=== PATIENT | male | born 1970 | race American Indian/Alaskan Native ===

== ENCOUNTER 2018-03-01 16:21 | Emergency (ER) | payer MEDICARE, MEDICAID ==
[~2018-03-01] VITALS: Ht 170.2 cm; Wt 77.7 kg
[~2018-03-01 16:21] MED LIST: ACET500C50 PO; AMOX-580 PO; ATRO5DRO LEFTEYE; DEXA5DRO4 RIGHTEYE; DIAZ5TAB PO; DORZ10DR17 LEFTEYE; GENT5DRO OP; GENT5DRO4 OP; LACT1CAP26 PO; MECL-111 PO; MECL12.584 PO; NAPR-232 PO; ONDA4TAB6 PO; PRED1DRO EACHEYE
[2018-03-01] MEDS ORDERED: ciprofloxacin 0.3% 5ml ophthalmic solution RIGHTEYE ONE (17:15)
[2018-03-01 17:40] VITALS: BP 156/98
== END 2018-03-01 17:42 | disposition home or self-care (01) ==
LOC: ER 16:22
DX: H53.8 Other visual disturbances (principal); F12.10 Cannabis abuse, uncomplicated; Z56.0 Unemployment, unspecified; Z59.0 Homelessness; Z79.899 Other long term (current) drug therapy; Z60.2 Problems related to living alone
CPT/HCPCS: 99284

== ENCOUNTER 2018-05-16 16:36 | Emergency (ER) | payer MEDICARE, MEDICAID ==
[~2018-05-16] VITALS: Ht 4311.5 cm; Wt 85.9 kg
[2018-05-16] MEDS ORDERED: LORazepam 2 mg/ml vial IM ONE (16:50)
[2018-05-16] MEDS ORDERED: OFLO5DRO3 (17:27)
[2018-05-16 17:30] LABS: BASOPHILS % (AUTO) 0.4 % (0-1); EOSINOPHILS # (AUTO) 0.1 X10'3 (0-0.9); EOSINOPHILS % (AUTO) 1.6 % (0-6); HEMATOCRIT 37.8 % (42.0-52.0); HEMOGLOBIN 13.3 g/dl (14.0-17.9); LYMPHOCYTES % (AUTO) 28.1 % (21-51); MEAN CORPUSCULAR HEMOGLOBIN 31.9 PG (27.0-31.0); MEAN CORPUSCULAR HGB CONC 35.1 % (33.0-36.5); MEAN CORPUSCULAR VOLUME 90.8 FL (78-98); MEAN PLATELET VOLUME 8.1 FL (7.4-10.4); MONOCYTES # (AUTO) 0.8 X10'3 (0-0.9); MONOCYTES % (AUTO) 11.4 % (2-12); NEUTROPHILS # (AUTO) 4.3 X10'3 (1.8-7.7); NEUTROPHILS % (AUTO) 58.5 % (42-75); PLATELET COUNT 237 X10'3 (140-440); RED BLOOD COUNT 4.17 X10'6 (4.70-6.10); RED CELL DISTRIBUTION WIDTH 13.9 % (11.5-14.5); WHITE BLOOD COUNT 7.3 X10'3 (4.5-11.0)
[2018-05-16 17:50] LABS: ALANINE AMINOTRANSFERASE 22 U/L (12-78); ALBUMIN 3.4 G/DL (3.4-5.0); ALKALINE PHOSPHATASE 68 IU/L (46-116); ANION GAP 7 (8-16); ASPARTATE AMINO TRANSFERASE 25 U/L (10-37); BILIRUBIN,TOTAL 0.7 MG/DL (0.1-1.0); BLOOD UREA NITROGEN 10 MG/DL (7-18); BUN/CREATININE RATIO 12.2 (5.4-32.0); CALCIUM 8.6 MG/DL (8.5-10.1); CHLORIDE 103 MMOL/L (99-107); CREATININE 0.82 MG/DL (0.60-1.10); GLUCOSE 81 MG/DL (70-104); POTASSIUM 3.7 MMOL/L (3.5-5.1); SODIUM 136 MMOL/L (135-145); TOTAL PROTEIN 6.8 G/DL (6.4-8.2); eGFR > 90 ML/MIN
[2018-05-16 17:59] LABS: ETHANOL < 0.010 GM/DL (0.0-0.010)
[2018-05-16 19:34] LABS: CLARITY,URINE CLEAR (Clear); COLOR,URINE YELLOW (Yellow); GLUCOSE, URINE NEGATIVE (Neg); KETONES,URINE NEGATIVE (Neg); LEUKOCYTE ESTERASE ,URINE NEGATIVE (Neg); NITRITES, URINE NEGATIVE (Neg); OCCULT BLOOD,URINE NEGATIVE (Neg); PH,URINE 6.5 (4.8-8.0); PROTEIN,URINE NEGATIVE (Neg); UROBILINOGEN,URINE >=8.0 E.U/dL (0.2-1.0)
[2018-05-16 19:40] LABS: UA COLLECTION TYPE CLN CATCH MIDSTREAM
[2018-05-16 19:41] LABS: URINE AMPHETAMINE SCREEN POSITIVE (Neg); URINE BARBITUATE SCREEN NEGATIVE (Neg); URINE BENZODIAZEPINES SCREEN NEGATIVE (Neg); URINE CANNABINOID SCREEN POSITIVE (Neg); URINE COCAINE SCREEN NEGATIVE (Neg); URINE METHADONE SCREEN NEGATIVE (Neg); URINE OPIATE SCREEN NEGATIVE (Neg); URINE PHENCYCLIDINE SCREEN NEGATIVE (Neg)
[2018-05-16] MEDS: ciprofloxacin 0.3% 2.5ml ophthalmic solution EACHEYE SCH (20:28)
[2018-05-16] MEDS ORDERED: LORazepam 1 MG tablet PO ONE (21:50)
[2018-05-17] MEDS: ciprofloxacin 0.3% 2.5ml ophthalmic solution EACHEYE SCH ×6 (04:07→20:00)
[2018-05-17] MEDS ORDERED: LORazepam 1 MG tablet PO ONE (09:05)
[2018-05-17] MEDS: LORazepam 1 MG tablet PO PRN (21:10)
[2018-05-17] MEDS: acetaminophen 325mg tablet PO PRN (21:11)
[2018-05-18] MEDS: ciprofloxacin 0.3% 2.5ml ophthalmic solution EACHEYE SCH ×6 (08:00→20:00)
[2018-05-19] MEDS: ciprofloxacin 0.3% 2.5ml ophthalmic solution EACHEYE SCH ×6 (04:53→20:06)
[2018-05-19] MEDS ORDERED: LORazepam 2 mg/ml vial IV ONE (19:55)
[2018-05-19] MEDS ORDERED: levetiracetam inj 1,000 MG in normal saline 100ml IV soln 90 ML IV SCH (20:00)
[2018-05-19] MEDS ORDERED: levetiracetam inj 1,000 MG in normal saline 100ml IV soln 100 ML IV ONE (20:00)
[2018-05-20] MEDS: ciprofloxacin 0.3% 2.5ml ophthalmic solution EACHEYE SCH ×6 (04:00→19:48)
[2018-05-20] MEDS ORDERED: LORazepam 2 mg/ml vial IV ONE (13:15)
[2018-05-20] MEDS: LORazepam 1 MG tablet PO PRN (19:48)
[2018-05-21] MEDS: ciprofloxacin 0.3% 2.5ml ophthalmic solution EACHEYE SCH ×6 (04:00→19:28)
[2018-05-21] MEDS: LORazepam 1 MG tablet PO PRN ×2 (08:44→15:16)
[2018-05-21] MEDS: acetaminophen 325mg tablet PO PRN ×2 (08:45→16:08)
[2018-05-22] MEDS: ciprofloxacin 0.3% 2.5ml ophthalmic solution EACHEYE SCH ×4 (04:00→12:00)
[2018-05-22] MEDS: LORazepam 1 MG tablet PO PRN (08:39)
[2018-05-22 12:26] VITALS: BP 110/70
== END 2018-05-22 11:45 | disposition home or self-care (01) ==
LOC: ER 16:37
DX: R45.851 Suicidal ideations (principal); G40.909 Epilepsy, unspecified, not intractable, without status epilepticus; H54.8 Legal blindness, as defined in USA; F12.90 Cannabis use, unspecified, uncomplicated; Z79.899 Other long term (current) drug therapy; Z56.0 Unemployment, unspecified; Z59.0 Homelessness; Z60.2 Problems related to living alone
CPT/HCPCS: 36415; 80053; 80305; 80320; 81003; 84443; 85025; 96365; 96372; 96375; 96376; 99285; J2060

== ENCOUNTER 2018-11-30 11:51 | Emergency (ER) | payer MEDICARE, MEDICAID ==
[~2018-11-30] VITALS: Ht 185.4 cm; Wt 91.0 kg
[~2018-11-30 11:51] MED LIST changes: -ACET500C50 PO; -AMOX-580 PO; -ATRO5DRO LEFTEYE; -DEXA5DRO4 RIGHTEYE; -DIAZ5TAB PO; -DORZ10DR17 LEFTEYE; -GENT5DRO OP; -GENT5DRO4 OP; -LACT1CAP26 PO; -MECL-111 PO; -MECL12.584 PO; -NAPR-232 PO; +OFLO5DRO3; -ONDA4TAB6 PO; -PRED1DRO EACHEYE
[2018-11-30 12:33] LABS: BASOPHILS % (AUTO) 0.3 % (0-1); EOSINOPHILS # (AUTO) 0.1 X10'3 (0-0.9); EOSINOPHILS % (AUTO) 1.6 % (0-6); HEMOGLOBIN 13.5 g/dl (14.0-17.9); LYMPHOCYTES # (AUTO) 0.9 X10'3 (1.1-4.8); LYMPHOCYTES % (AUTO) 13.4 % (21-51); MEAN CORPUSCULAR HGB CONC 33.8 g/dL (33.0-36.5); MEAN CORPUSCULAR VOLUME 91.9 FL (78-98); MEAN PLATELET VOLUME 7.9 FL (7.4-10.4); MONOCYTES # (AUTO) 0.7 X10'3 (0-0.9); MONOCYTES % (AUTO) 10.3 % (2-12); NEUTROPHILS # (AUTO) 4.9 X10'3 (1.8-7.7); NEUTROPHILS % (AUTO) 74.4 % (42-75); PLATELET COUNT 295 X10'3 (140-440); RED BLOOD COUNT 4.35 X10'6 (4.70-6.10); RED CELL DISTRIBUTION WIDTH 14.7 % (11.5-14.5); WHITE BLOOD COUNT 6.6 X10'3 (4.5-11.0)
[2018-11-30 12:49] LABS: ALANINE AMINOTRANSFERASE 43 U/L (12-78); ALBUMIN 3.6 G/DL (3.4-5.0); ALKALINE PHOSPHATASE 78 IU/L (46-116); ANION GAP 11 (8-16); ASPARTATE AMINO TRANSFERASE 24 U/L (10-37); BILIRUBIN,TOTAL 0.4 MG/DL (0.1-1.0); BLOOD UREA NITROGEN 8 MG/DL (7-18); CALCIUM 8.6 MG/DL (8.5-10.1); CHLORIDE 108 MMOL/L (99-107); GLUCOSE 92 MG/DL (70-104); POTASSIUM 3.8 MMOL/L (3.5-5.1); PROTHROMBIN TIME 10.1 SECONDS (9.0-12.0); SODIUM 143 MMOL/L (135-145); TOTAL CARBON DIOXIDE 23.9 MMOL/L (24-32); TOTAL PROTEIN 7.3 G/DL (6.4-8.2); eGFR > 90 ML/MIN
[2018-11-30 16:09] VITALS: BP 140/95
[2018-11-30] MEDS ORDERED: LIDOcaine Viscous 15ml cup PO ONE (16:15)
[2018-11-30] MEDS ORDERED: mag hydrox/Alum hydrox/simeth 30ml oral suspension PO ONE (16:15)
[2018-11-30] MEDS ORDERED: loperamide 2mg capsule PO ONE (16:15)
[2018-11-30] MEDS ORDERED: ondansetron 4mg rapidly disintigrating tab PO ONE (16:15)
[2018-11-30] MEDS ORDERED: ESOM40CA PO (16:40)
[2018-11-30] MEDS ORDERED: ONDA4TAB12 PO (16:40)
[2018-11-30] MEDS ORDERED: LOPE-144 PO (16:40)
== END 2018-11-30 16:55 | disposition home or self-care (01) ==
LOC: ER 11:52
DX: R19.7 Diarrhea, unspecified (principal); E86.0 Dehydration; F12.90 Cannabis use, unspecified, uncomplicated; Z86.69 Personal history of other diseases of the nervous system and sense organs; Z98.890 Other specified postprocedural states; Z60.2 Problems related to living alone; Z56.0 Unemployment, unspecified; Z59.0 Homelessness; Z79.899 Other long term (current) drug therapy
CPT/HCPCS: 36415; 80053; 85025; 85610; 99284